=== PATIENT | male | born 2000 | race African-American/Black ===

== ENCOUNTER 2020-09-10 14:51 | Emergency (ER) | payer SELFPAY ==
[2020-09-10 15:04] VITALS: BP 165/99
--- NOTE | 2020-09-10 15:20 | ER Document Report ---
HPI - HPI Time Seen by Provider: 09/10/20 15:14 Pain Level: 5 Context: Patient is a 20-year-old male who presents emergency department with a chief complaint of tooth pain to tooth #2. His pain started about 2 to 3 days ago. Has been there put in a temporary filling, from the drugstore. Patient denies any shortness of breath, difficulty breathing, or swelling. Denies any difficulty swallowing. - ROS Systems Reviewed and Negative: Yes All other systems reviewed and negative - CONSTITUTIONAL Constitutional: DENIES: Fever, Chills - EENT EENT: DENIES: Sore Throat, Ear Pain, Congestion, Eye problems Notes: Teeth pain, see HPI. - NEURO Neurology: DENIES: Headache - CARDIOVASCULAR Cardiovascular: DENIES: Chest pain - RESPIRATORY Respiratory: DENIES: Trouble Breathing, Coughing - GASTROINTESTINAL Gastrointestinal: DENIES: Abdominal Pain, Nausea, Patient vomiting - MUSCULOSKELETAL Musculoskeletal: DENIES: Extremity pain - DERM Skin Color: Normal Skin Problems: None Past Medical History - General Information source: Patient - Social History Smoking Status: Never Smoker Frequency of alcohol use: None Drug Abuse: None Family History: Reviewed & Not Pertinent Patient has homicidal ideation: No Vertical Provider Document - CONSTITUTIONAL Agree With Documented VS: Yes Exam Limitations: No Limitations General Appearance: No Apparent Distress - HEENT HEENT: Atraumatic, Normocephalic, PERRLA Mouth Diagram: 1 - Tooth decay - NECK Neck: Normal Inspection - RESPIRATORY Respiratory: Breath Sounds Normal, No Respiratory Distress - CARDIOVASCULAR Cardiovascular: Regular Rate, Regular Rhythm Pulses: Normal: Radial - MUSCULOSKELETAL/EXTREMETIES Musculoskeletal/Extremeties: FROM - NEURO Level of Consciousness: Awake, Alert, Appropriate Motor/Sensory: No Motor Deficit, No Sensory Deficit - DERM Integumentary: Warm, Dry, No Rash Course - Re-evaluation Re-evalutation: 09/10/20 15:18 Patient's physical exam and history is most consistent with a infected tooth. Patient is able to swallow, no facial swelling noted, airway is patent, vital signs are normal. I do not suspect Christopher's angina, peritonsilar abscess, or airway obstruction. The patient will be started on oral antibiotics. I have given the patient education on their antibiotics. Patient was given instructions to follow-up with a dentist this week. Return precautions were given. Verbal discharge instructions were given. Patient verbalized understanding. Patient is stable for discharge. - Vital Signs Vital signs: Temp Pulse Resp BP Pulse Ox 97.9 F 62 18 165/99 H 100 09/10/20 15:03 09/10/20 15:03 09/10/20 15:03 09/10/20 15:03 09/10/20 15:03 - Laboratory Results Critical Laboratory Results Reviewed: No Critical Results - Radiology Results Critical Radiology Results Reviewed: No Critical Results Discharge - Discharge Clinical Impression: Toothache Condition: Stable Disposition: HOME, SELF-CARE Instructions: [facility], Penicillin V K ([facility]), Toothache ([facility]) Additional Instructions: You have been seen in the emergency department for a toothache. You may take ibuprofen 600 mg and Tylenol 1000 mg every 6 hours as needed for the pain. You have also been prescribed antibiotics. Please take the antibiotics as prescri bed, even if you start to feel better. If you develop a fever greater than 100.4 F, or have any symptoms that are worrisome to you, please return to the emergency department. Please follow-up with a dentist this week in regards to your visit. Prescriptions: Penicillin V Potassium [Penicillin Vk 500 mg Tablet] 500 mg PO QID #40 tablet Referrals: [facility] [Provider Group] - Follow up in 1 week
== END 2020-09-10 15:23 | disposition home or self-care (01) ==
LOC: ER 14:51
DX: K02.9 Dental caries, unspecified (principal); K08.89 Other specified disorders of teeth and supporting structures
CPT/HCPCS: 99283